=== PATIENT | male | born 1930 | race Asian ===

== ENCOUNTER 2016-05-14 08:45 | Outpatient (RCR) | payer OTHER ==
[~2016-05-14 08:45] MED LIST: ARMOUR THYROID30 MG PO; ASPIR-LOW81 MG PO; COMBIGAN EYE DRO5 ML LEFT EYE; DORZOLAMIDE LEFT EYE; HYTRIN10 MG PO; LUMIGAN1 DROP OP; TIMOLOL LEFT EYE
== END 2016-06-12 | disposition home or self-care (01) ==
LOC: PTY 08:45
DX: M54.42 Lumbago with sciatica, left side (principal); G89.29 Other chronic pain
CPT/HCPCS: 97035; 97110; 97140; 97161; G0283

== ENCOUNTER 2016-07-22 05:14 | Day surgery (SDC) | payer OTHER ==
[2016-07-22] VITALS (9 sets, daily range): BP systolic 127–147; BP diastolic 63–77
[~2016-07-22] VITALS: Ht 167.6 cm; Wt 73.5 kg
[~2016-07-22 05:14] MED LIST changes: +COMBIGAN EYE DRO5 ML BOTH EYES; -COMBIGAN EYE DRO5 ML LEFT EYE; +DORZOLAMIDE BOTH EYES; -DORZOLAMIDE LEFT EYE; +TIMOLOL BOTH EYES; -TIMOLOL LEFT EYE
[2016-07-22] MEDS ORDERED: Akten 3.5% 1ml Btl ONE (06:01)
[2016-07-22] MEDS ORDERED: Tobradex Opth Susp 2.5ml ONE (06:01)
[2016-07-22] MEDS ORDERED: Gatifloxacin Opth Solution 0.5% ONE (06:01)
[2016-07-22] MEDS ORDERED: Tropicamide 1% Opth Soln ONE (06:01)
[2016-07-22] MEDS ORDERED: Phenylephrine 2.5% Op Soln ONE (06:01)
[2016-07-22] MEDS ORDERED: Diclofenac Sod 0.1% Op Soln ONE (06:01)
[2016-07-22] MEDS: Phenylephrine 2.5% Op Soln RIGHT EYE SCH ×3 (06:03→06:21)
[2016-07-22] MEDS: Tropicamide 1% Opth Soln RIGHT EYE SCH ×3 (06:03→06:21)
[2016-07-22] MEDS: Akten 3.5% 1ml Btl RIGHT EYE SCH ×3 (06:03→06:20)
[2016-07-22] MEDS: Diclofenac Sod 0.1% Op Soln RIGHT EYE SCH ×3 (06:03→06:21)
[2016-07-22] MEDS: Gatifloxacin Opth Solution 0.5% RIGHT EYE SCH ×3 (06:04→06:21)
[2016-07-22] MEDS: Tobradex Opth Susp 2.5ml RIGHT EYE SCH ×3 (06:04→06:21)
[2016-07-22] MEDS ORDERED: ESCITALOPRAM OXA5 MG PO (06:17)
[2016-07-22] MEDS ORDERED: SIMVASTATIN40 MG ORAL (06:17)
[2016-07-22] MEDS ORDERED: CENTRUM SILVER1 EAC7 PO (06:17)
[2016-07-22] MEDS ORDERED: COSAMIN DS TAB1 EAC1 PO (06:17)
[2016-07-22] MEDS ORDERED: LEVOTHYROXINE75 MCG ORAL (06:17)
[2016-07-22] MEDS ORDERED: BICALUTAMIDE50 MG ORAL (06:17)
[2016-07-22] MEDS ORDERED: ACYCLOVIR400 MG ORAL (06:17)
--- NOTE | 2016-07-22 07:38 | Pre-Procedure Note/Attestation ---
Pre-Procedure Note/Attestation Complete Prior to Procedure Planned Procedure: right Procedure Narrative: cataract extraction with implant right eye Indications for Procedure Pre-Operative Diagnosis: cataract right eye Attestation I attest that I discussed the nature of the procedure; its benefits; risks and complications; and alternatives (and the risks and benefits of such alternatives ), prior to the procedure, with the patient (or the patient's legal merchandiser retail representative). I attest that, if there was a reasonable possibility of needing a blood transfusion, the patient (or the patient's legal merchandiser retail representative) was given the [facility] standardized written summary, pursuant to the [place] Blood Safety Act ([place] Health and Safety Code # 1645, as amended). I attest that I re-evaluated the patient just prior to the surgery and that there has been no change in the patient's H&P, except as documented below: ASUNCION MEEK July 22, 2016 07:38
[2016-07-22] MEDS ORDERED: LR 1000ml 1,000 ML IVLG SCH (07:57)
--- NOTE | 2016-07-22 07:57 | Anethesia Preoperative Eval ---
Anesthesia Pre-op PMH/ROS General Date of Evaluation: July 22, 2016 Anesthesiologist: Arden ASA Score: ASA 3 Mallampati Score Class I : Soft palate, uvula, fauces, pillars visible Class II: Soft palate, uvula, fauces visible Class III: Soft palate, base of uvula visible Class IV: Only hard plate visible Mallampati Classification: Class II Surgeon: Jakob Diagnosis: Right cataract Surgical Procedure: Right cataract extraction with IOL Anesthesia History: none Family History: no anesthesia problems Allergies: Coded Allergies: No Known Allergies (Verified , 09/04/08) Medications: see eMAR Past Medical History Cardiovascular: Reports: HTN, Denies: CAD, [place], arrhythmia, other, valve dz Pulmonary: Denies: COPD, NOEMI, asthma, other Gastrointestinal/Genitourinary: Reports: other - prostate Cancer s/p radiation , Denies: CRI, ESRD, GERD Neurologic/Psychiatric: Denies: CVA, TIA, dementia, depression/anxiety, other Endocrine: Reports: hypothyroidism, Denies: DM, other, steroids HEENT: Denies: [place] (L), [place] (R), cataract (L), cataract (R), glaucoma, other Hematology/Immune: Denies: DVT, anemia, bleeding disorder, other Musculoskeletal/Integumentary: Reports: OA, Denies: DDD, DJD, RA, edema, other PSxH Narrative: Denies Anesthesia Pre-op Phys. Exam Physician Exam Last Vital Signs Date Time Temp Pulse Resp B/P Pulse Ox O2 Delivery O2 Flow Rate FiO2 07/22/16 06:06 97.7 53 20 142/70 97 Room Air Constitutional: NAD Cardiovascular: RRR Respiratory: CTA Airway Exam Mallampati Score: Class II MO: full ROM: full Anesthesia Pre-op A/P Labs see chart Studies Pre-op Studies: EKG - sr Risk Assessment & Plan Assessment: ASA III Plan: MAC Status Change Before Surgery: No Pre-Antibiotics Drug: N/A RAN POZO M.D. July 22, 2016 07:57
[2016-07-22] MEDS ORDERED: DiphenhydrAMINE 50mg/ml Inj IVP PRN (08:00)
[2016-07-22] MEDS ORDERED: Sterile Water Irrig 1000ml IRRIG ONE (08:55)
[2016-07-22] MEDS ORDERED: fentaNYL 100 mcg/2 mL IV ONE (08:55)
[2016-07-22] MEDS ORDERED: LR 1000ml ONE (08:55)
[2016-07-22] MEDS ORDERED: NS Irrig 1000ml ONE (08:55)
--- NOTE | 2016-07-22 09:35 | Brief Operative Note ---
Immediate Post Operative Note Operative Note Pre-op Diagnosis: cataract right eye Procedure: phacoemulsification of cataract with implant right eye Post-op Diagnosis: same as pre-op Surgeon: asuncion henderson Insurance Agency Manager: none Anesthesiologist: sakshi cortes Anesthesia: MAC Specimen: none Complications: none Condition: stable Estimated Blood Loss: none Drains: none Implant(s) used?: Yes ASUNCION HENDERSON July 22, 2016 09:35
[2016-07-22] MEDS ORDERED: Povidone-Iodine 5% opth solution ONE (09:36)
--- NOTE | 2016-07-22 09:36 | Immediate Post-Op Evaluation ---
Immediate Post-Op Evalulation Immediate Post-Op Evalulation Procedure: Right cataract extractioon with IOL Date of Evaluation: July 22, 2016 Time of Evaluation: 09:38 IV Fluids: 400 Blood Products: 0 Estimated Blood Loss: 0 Urinary Output: 0 Blood Pressure Systolic: 147 Blood Pressure Diastolic: 66 Pulse Rate: 55 Respiratory Rate: 16 O2 Sat by Pulse Oximetry: 99 Temperature (Fahrenheit): 97.8 Pain Score (1-10): 0 Nausea: No Vomiting: No Complications 0 Patient Status: awake, reacts, patent, none Hydration Status: adequate Drug: N/A RAN POZO M.D. July 22, 2016 09:36
[2016-07-22] MEDS ORDERED: TRUSOPT10 ML BOTH EYES (10:22)
[2016-07-22] MEDS ORDERED: BSS 500ml btl ONE (10:24)
[2016-07-22] MEDS ORDERED: Sodium Hyaluronate 14 mg/ml 0.85ml ONE (10:24)
[2016-07-22] MEDS ORDERED: EPINEPHrine 1mg/1ml Amp ONE (10:24)
[2016-07-22] MEDS ORDERED: BSS 15ml BTL ONE (10:24)
[2016-07-22] MEDS ORDERED: Lidocaine 1% MPF 10mg/ml 5ml ONE (10:24)
[2016-07-22] MEDS ORDERED: Dexamethasone 4mg/ml vial ONE (10:24)
[2016-07-22] MEDS ORDERED: TIMOPTIC 0.5%1 EACH BOTH EYES (10:30)
[2016-07-22] MEDS ORDERED: LATANOPROST2.5 ML BOTH EYES (10:30)
[2016-07-22] MEDS ORDERED: BRIMONIDINE TART5 ML BOTH EYES (10:31)
--- NOTE | 2016-07-22 11:39 | Operative Note - Dictated ---
DATE OF OPERATION: 07/22/2016 PREOPERATIVE DIAGNOSIS: Cataract, right eye. POSTOPERATIVE DIAGNOSIS: Cataract, right eye. PROCEDURE: Phacoemulsification cataract right eye with placement of posterior chamber intraocular lens. SURGEON: Elver Robert M.D. ASSISTANT FARM OPERATIONS MANAGER: None. ANESTHESIA: MAC/topical. ANESTHESIOLOGIST: Dr. Agueda Yanes. INDICATION FOR PROCEDURE: Hand motion vision, right eye. DESCRIPTION OF FINDINGS: Dense nuclear sclerotic cortical and posterior subcapsular cataract, right eye. DESCRIPTION OF PROCEDURE: The patient received a topical anesthetic block consisting of 3.5% Akten eye drops. The eye was then prepped and draped in usual manner. A lid speculum was placed and a Zeiss microscope was positioned. A temporal corneal groove was made with the graciela blade. A SuperSharp blade made a stab incision at the 12 o'clock position. A 0.1 mL of 1% nonpreserved intracameral lidocaine was injected. Air was instilled into the anterior chamber. Vision Blue dye was used to stain the anterior capsule. Healon was instilled into the anterior chamber and a 2.5/2.8 mm trapezoidal graciela blade was used to complete the temporal corneal wound. A cystotome was used to create an anterior capsular flap. Utrata forceps were used to complete the capsulorrhexis. BSS on a cannula was used to hydrodissect the nucleus. The lens nucleus was phacoemulsified in a phaco-fracture technique. Remaining cortical material was removed with the I/A and the posterior capsule polished with the I/A on Cap vac. A dense fibrotic posterior capsule scar remained. Healon was instilled in the capsular bag and anterior chamber, and an Terrell foldable one-piece posterior chamber intraocular lens model [id number], power 11.0 diopter, serial #[id number] was placed in the injector. The lens was put in the capsular bag. The I/A tip was used to remove the Healon and position the lens. The wound edge was hydrated with BSS and a blunt-tipped cannula. The wound was checked and found to be watertight. The lid speculum was removed. A drop of TobraDex and Zymaxid was placed. A clear plastic shield was taped over the eye. The patient tolerated well and left the operating room in good condition. Elver Robert M.D. ([facility]) DR: Britton JOB#: [id number] CC: MEAGAN
--- NOTE | 2016-07-22 12:13 | 48 Hour Post Anesthesia Eval ---
Post Anesthesia Evaluation Procedure: Right cataract extractioon with IOL Date of Evaluation: July 22, 2016 Time of Evaluation: 11:10 Blood Pressure Systolic: 130 0: 76 Pulse Rate: 55 Respiratory Rate: 20 Temperature (Fahrenheit): 98.3 O2 Sat by Pulse Oximetry: 97 Airway: patent Nausea: No Vomiting: No Pain Intensity: 0 Hydration Status: adequate Cardiopulmonary Status: at baseline Mental Status/LOC: patient returned to baseline Post-Anesthesia Complications: 0 Follow-up care needed: ready to discharge RAN POZO M.D. July 22, 2016 12:13
== END 2016-07-22 10:55 | disposition home or self-care (01) ==
LOC: SUR 05:14
DX: H25.811 Combined forms of age-related cataract, right eye (principal); H40.10X0 Unspecified open-angle glaucoma, stage unspecified; I10 Essential (primary) hypertension; E03.9 Hypothyroidism, unspecified; M19.90 Unspecified osteoarthritis, unspecified site; F32.9 Major depressive disorder, single episode, unspecified; F41.9 Anxiety disorder, unspecified; R00.1 Bradycardia, unspecified; Z85.46 Personal history of malignant neoplasm of prostate; Z79.82 Long term (current) use of aspirin
CPT/HCPCS: 66984; J0171; J1100; J3010; J7120; V2632; 94003; 94150